=== PATIENT | female | born 1955 | race African-American/Black ===

== ENCOUNTER 2024-02-14 11:40 | Emergency (ER) | payer SELFPAY ==
[2024-02-14 13:04] LABS: INR-International Normal Ratio 1.3; Prothrombin Time 15.9 sec (12.0-14.7)
[2024-02-14 13:17] LABS: ALT (SGPT) 12 U/L (8-55); AST (SGOT) 18 U/L (5-34); Albumin 3.9 g/dL (3.4-4.8); Alkaline Phosphatase 44 U/L (40-110); Anion Gap 12 mmol/L (10-20); BUN (Urea Nitrogen) 10 mg/dL (9.8-20.1); Bilirubin, Total 0.5 mg/dL (0.2-1.2); Calc. Creatinine Clearance 0 mL/min (70-130); Carbon Dioxide 23 mmol/L (23-31); Chloride 101 mmol/L (98-107); Estimated GFR 62; Globulin 3.3 g/dL (2.4-3.5); Glucose 79 mg/dL (80-115); Potassium 3.3 mmol/L (3.5-5.1); Protein, Total 7.2 g/dL (5.8-8.1); Sodium 133 mmol/L (136-145)
[2024-02-14 13:19] LABS: Troponin I 0.011 ng/mL (< 0.028)
[2024-02-14 13:20] LABS: Hematocrit 34.7 % (36.0-47.0); Hemoglobin 10.8 g/dL (12.0-16.0); Manual Diff?? YES; Mean Corpuscular HGB CONC 31.3 g/dL (32.0-36.0); Mean Corpuscular Volume 83.3 fl (78.0-98.0); Mean Platelet Volume 9.2 fL (7.4-10.4); Platelet Count 175 10x3/uL (130-400); RBC Distribution Width 14.4 % (11.5-14.5); Red Blood Cell (RBC) Count 4.16 mill/uL (4.20-5.40); White Blood Cell (WBC) Count 3.4 10x3/uL (4.8-10.8)
[2024-02-14 13:25] LABS: MDiff Complete? YES
[2024-02-14 13:26] LABS: Band 2 % (5-11); Lymphocytes 4 % (21-51); Monocytes 11 % (0-10); Neutrophil 73 % (42-75); Reactive Lymphocytes 10 % (0-10)
[2024-02-14 13:27] LABS: Hypochromia SLIGHT = 6-15 cells (100X) (0-5/hpf); Platelet Adequacy Comment Appears Adequate
[2024-02-14 15:03] LABS: Bilirubin Negative (Negative); Blood, Urine Trace (Negative); Clarity Clear (Clear); Glucose, Urine (Dipstick) Negative (Negative); Ketone, Urine Negative (Negative); Leukocyte Negative (Negative); Nitrite Negative (Negative); Protein, Urine (Dipstick) Negative (Neg-Trace); pH, Urine 5.5 (5.0-9.0)
[2024-02-14 15:06] LABS: Bacteria/HPF Rare-Few HPF (None Seen); CAUTI Indications for Culture Alt mental st,lethar; RBC/HPF 0-3 HPF (0-3); Squamous Epithelial 0-3 HPF (0-3); Urine Culture Reflex No No; WBC/HPF None Seen HPF (0-3)
== END 2024-02-14 20:06 | disposition short-term general hospital (02) ==
LOC: MADERS 11:40
DX: R41.82 Altered mental status, unspecified (principal); F17.210 Nicotine dependence, cigarettes, uncomplicated
CPT/HCPCS: 0042T; 36416; 70450; 71045; 80053; 81001; 84443; 84484; 85025; 85610; 85730; 93005; 94760